=== PATIENT | female | born 1955 ===

== ENCOUNTER 2017-09-13 18:49 | Emergency (ER) | payer MEDICAID, OTHER ==
[2017-09-13 19:15] VITALS: BP 117/65; PULSE 76; RESP 18; TEMP 98; O2SAT 97
--- NOTE | 2017-09-13 19:28 | ED PDOC ---
Lower Extremity Pain/Injury Time Seen by Provider: 09/13/17 19:16 Chief Complaint (Nursing): Lower Extremity Problem/Injury Chief Complaint (Provider): Right Foot/Ankle Pain History Per: Patient, [employer] (Krista Chin RN at bedside for samoan translation) Onset/Duration Of Symptoms: Days (x1 week) Current Symptoms Are (Timing): Still Present Additional Complaint(s): 62 y/o female with a PMHx of osteoporosis presenting with daughter for evaluation of right foot pain x1 week. Patient states she fell and injured her right foot 1 week ago. Daughter states the patient was able to ambulate and had minimal pain for the first 2-3 days, but has since been unable to bear weight. Patient has not taken any meds for pain relief. Patient walks with cane at baseline. 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 - Surgical History Surgical History: No Surg Hx - Family History Family History: States: No Known Family Hx - Living Arrangements Living Arrangements: With Family - Social History Current smoker - smoking cessation education provided: No Alcohol: None Drugs: Denies - Home Medications Home Medications: Ambulatory Orders Medication Instructions Recorded Ibuprofen [Motrin] 600 mg PO Q6 PRN #20 tab 09/13/17 - Allergies Allergies/Adverse Reactions: Allergies Allergy/AdvReac Type Severity Reaction Status Date / Time No Known Allergies Allergy Verified 09/13/17 19:12 Wells Criteria for PE - Wells Criteria for Pulmonary Embolism Clinical Signs and Symptoms of DVT: No P.E is #1 Diagnosis, or Equally Likely: No Heart Rate >100: No Immobilization at least 3 days;Surgery previous 4 weeks: No Previous, objectively diagnosed PE or DVT: No Hemoptysis: No Malignancy w/treatment within 6 months, or palliative: No Total Score: 0 Review of Systems ROS Statement: Except As Marked, All Systems Reviewed And Found Negative Musculoskeletal: Positive for: Foot Pain (right foot and ankle pain) Physical Exam - Reviewed Nursing Documentation Reviewed: Yes Vital Signs Reviewed: Yes - Physical Exam Appears: Positive for: Well, Non-toxic, No Acute Distress Skin: Positive for: Normal Color. Negative for: Rash Eye Exam: Positive for: Normal appearance Extremity: Positive for: Tenderness (diffuse tenderness to right foot and ankle region), Other (no obvious bony deformity noted, normal cap refill, normal distal sensation, palpable distal pulses) Neurologic/Psych: Positive for: Alert, Oriented, Motor/Sensory Deficits ( residual weakness to right arm with deformity, present since patient was child) - ECG O2 Sat by Pulse Oximetry: 97 (RA) Pulse Ox Interpretation: Normal - Other Rad Right foot and ankle x-ray X-Ray: Interpreted by Me, Viewed By Me X-Ray Interpretation: ? fracture to intermediate cuneiform Medical Decision Making Medical Decision Makin:25 Impression: 62 y/o female with right foot and ankle pain Plan: -Motrin 600mg PO -Tylenol 975mg PO -Right ankle X-ray -Right foot X-ray Patient feels much better after meds given in ED. Podiatry resident, Jabari Stroud at bedside to see patient. Questionable fracture noted on foot x-ray, reviewed by PA and podiatry. Lind dressing was applied to affected foot, patient given crutches and was referred to packaging sales , Dr. Federico Munoz for follow-up next week. Rx motrin given. Scribe Attestation: Documented by Leland Harp, acting as a scribe for Julianna Huff PA-C. Provider Scribe Attestation: All medical record entries made by the scribe were at my direction and personally dictated by me. I have reviewed the chart and agree that the record accurately reflects my personal performance of the history, physical exam, medical decision making, and the department course for this patient. I have also personally directed, reviewed, and agree with the discharge instructions and disposition. Disposition - Clinical Impression Clinical Impression: Foot sprain - Patient ED Disposition Is Patient to be Admitted: No Counseled Patient/Family Regarding: Studies Performed, Diagnosis, Need For Followup, Rx Given - Disposition Referrals: Federico Munoz DPM [Medical Doctor] - Disposition: Routine/Home Disposition Time: 21:06 Condition: STABLE Additional Instructions: Ice, rest and elevate affected area. Take rx meds as directed. Call office number below to arrange for follow up with visit. Federico Munoz DPM [address] [place] [address] [phone] Prescriptions: Ibuprofen [Motrin] 600 mg PO Q6 PRN #20 tab PRN Reason: Pain, Moderate (4-7) Instructions: Foot Sprain (DC) Forms: [facility] (Estonian) Print Language: INDONESIAN
--- NOTE | 2017-09-13 21:21 | CP.PCM.CON ---
History of Present Illness - History of Present Illness History of Present Illness: Podiatry consult note for Dr. Munoz 62 y/o female with PMHx of a stroke and osteoporosis presents to the ER due to complaints of right foot and ankle pain. Podiatry was consulted. Patient is AAOX3 in the ED. Patient is accompanied by her daughter, who states the pain started 4 days ago when the patient fell and put all her pressure on the right foot. Patient denied pain at that time, however, patient's daughter states the pain has gradually worsened, especially with ambulation. Patient's daughter reports patient has a history of stroke from when she was a child, and hence has right-sided weakness. Patient has been ambulating on foot with pain, and help of cane. Patient denies any further pedal complaints at this time. Patient denies N/F/V/SB/C/CP/posterior calf pain. FHx: unremarkable Meds: Vitamin D3, Calcium Allergies: NKDA Review of Systems - Review of Systems All systems: reviewed and no additional remarkable complaints except Review of Systems: As per HPI Past Patient History - Past Social History Alcohol: None Drugs: Denies - MUSCULOSKELETAL/RHEUMATOLOGICAL Hx Osteoporosis: Yes - PSYCHIATRIC Hx Substance Use: No - SURGICAL HISTORY Hx Surgeries: No - ANESTHESIA Hx Anesthesia: No Meds Home Medications: Home Medication List Medication Instructions Recorded Confirmed Type Ibuprofen [Motrin] 600 mg PO Q6 PRN #20 tab 09/13/17 Rx Allergies/Adverse Reactions: Allergies Allergy/AdvReac Type Severity Reaction Status Date / Time No Known Allergies Allergy Verified 09/13/17 19:12 Physical Exam - Constitutional Appears: Well, Non-toxic, No Acute Distress - Head Exam Head Exam: ATRAUMATIC, NORMOCEPHALIC - Extremities Exam Additional comments: Right Lower Extremity Focused Examination VASC: DP and PT palpable 2/4, CFT less than 3 seconds X 10, TG warm to cool proximal to distal, minimal edema noted to the ankle and midfoot NEURO: Epicritic and Protective sensation intact DERM: no ecchymosis, no open wounds, no clinical signs on infection, minimal edema noted to the ankle and midfoot MSK: pain on palpation to the medial ankle, anterior ankle, and dorsal midfoot, difficult to assess exact location of pain secondary to patient guarding, right- sided spasms secondary to neurological deficits from a childhood stroke - Neurological Exam Neurological exam: Alert, Oriented x3 - Psychiatric Exam Psychiatric exam: Normal Affect, Normal Mood Results - Vital Signs Recent Vital Signs: Last Vital Signs Temp 98 F 09/13/17 19:12 Pulse 76 09/13/17 19:12 Resp 18 09/13/17 19:12 BP 117/65 09/13/17 19:12 Pulse Ox 97 09/13/17 21:08 Assessment & Plan - Assessment and Plan (Free Text) Assessment: 62 y/o female with PMHx of stroke and osteoporosis presents to the ER due to complaints of right foot and ankle pain. Plan: Patient seen and evaluated at bedside Patient plan discussed with attending, Dr. Munoz Patient x-rays of the right foot and ankle reviewed- possible lateral cuneiform fracture, non-displaced; signs of osteoporosis noted Patient placed in a Lind Compression and provided with a surgical shoe and crutches Patient instructed to stay non-weight bearing to the right lower extremity, and to ice and elevate Patient provided with information to see Dr. Munoz in his office Patient questions answered to satisfaction - Date & Time Date: 09/13/17 Time: 21:31
--- NOTE | 2017-09-14 09:02 | RAD ---
PROCEDURE: Right Foot Radiographs. HISTORY: trauma COMPARISON: None. FINDINGS: BONES: No definitive displaced fractures identified. However, patient is grossly osteopenia suggesting advanced osteoporosis which can limit the identification nondisplaced fractures. JOINTS: Diffuse mildly increased articular cortical sclerosis is seen throughout the joints of the right foot, particularly the hindfoot joints and the 1st metatarsal phalangeal and 1st interphalangeal joint compatible with osteoarthritis. No subluxation or dislocation. SOFT TISSUES: Loss of definition of subcutaneous fat planes may indicate diffuse foot edema. Clinically correlate. OTHER FINDINGS: None. IMPRESSION: No displaced fracture identified. Gross osteopenia may indicate advanced osteoporosis. Clinically correlate. Degenerative changes are identified diffusely as discussed above.
--- NOTE | 2017-09-14 09:06 | RAD ---
PROCEDURE: Right Ankle Radiographs. HISTORY: trauma COMPARISON: None FINDINGS: BONES: No displaced fracture identified. Gross osteopenia may indicate advanced osteoporosis. Clinically correlate. JOINTS: No subluxation or dislocation. Ankle mortise appears intact. Mild degenerative changes are manifest by articular cortical sclerosis of the subtalar and tibiotalar joints. SOFT TISSUES: There is poor differentiation of subcutaneous fat from the musculature suspicious for mild diffuse distal leg and foot edema including the ankle. The ankle is not focally edematous separate from the distal leg and foot soft tissues. OTHER FINDINGS: None. IMPRESSION: No displaced fracture identified. No dislocation. Diffuse osteopenia suggests osteoporosis. Diffuse distal leg, ankle and foot soft tissue edema is appreciated mildly.
== END 2017-09-13 21:58 | disposition home or self-care (01) ==
LOC: H.ER 18:49
DX: S93.601A Unspecified sprain of right foot, initial encounter (principal); W19.XXXA Unspecified fall, initial encounter; M81.0 Age-related osteoporosis without current pathological fracture; Z86.73 Personal history of transient ischemic attack (TIA), and cerebral infarction without residual deficits